=== PATIENT | male | born 1990 | race Caucasian/White ===

== ENCOUNTER 2020-05-27 20:15 | Inpatient (IN) ==
[2020-05-27 20:42] LABS: Basophils # 0.1 K/mcL (0.0-0.2); Basophils % 0.5 %; Eosinophils # 0.1 K/mcL (0.0-0.6); Eosinophils % 0.7 %; Hemoglobin 15.8 g/dL (12.9-16.9); Immature Granulocytes % 0.4 % (0-4); Lymphocytes # 2.4 K/mcL (0.6-4.6); Lymphocytes % 19.2 %; Mean Corpuscular HGB Conc 34.3 g/dL (31.6-35.5); Mean Corpuscular Hemoglobin 30.6 pg (28.0-33.3); Mean Corpuscular Volume 89.1 fL (83.0-100.0); Mean Platelet Volume 9.3 fL (9.4-12.4); Monocytes % 7.7 %; Neutrophils # 8.8 K/mcL (1.6-8.9); Platelet Count 358 K/mcL (140-400); Red Blood Count 5.16 M/mcL (4.19-5.50); Red Cell Distribution Width 12.9 % (11.5-14.5); Segmented Neutrophils % 71.5 %; White Blood Count 12.3 K/mcL (4.3-11.1)
[2020-05-27] MEDS ORDERED: Td (TENIVAC) Vaccine 0.5 ML VIAL IM ONE (20:45)
[2020-05-27 20:49] LABS: Bilirubin,Urine Negative (Negative); Blood,Urine Negative (Negative); Clarity,Urine Clear (Clear); Color,Urine Light-Yellow (Yellow); Glucose,Urine (UA) Normal (Normal); Ketones,Urine Trace mg/dL (Negative); Leukocyte Esterase,Urine Negative (Negative); Nitrite,Urine Negative (Negative); Protein,Urine Trace mg/dL (Neg-Trace); Specific Gravity,Urine 1.025 (1.010-1.025); Urobilinogen,Urine Normal (Normal)
[2020-05-27 20:59] LABS: Amphetamine Screen,Urine Negative ng/mL (Cutoff=1000); Barbiturate Screen,Urine Negative ng/mL (Cutoff=200); Benzodiazepines Screen,Urine Negative ng/mL (Cutoff=200); Cannabinoid Screen,Urine Negative ng/mL (Cutoff = 50); Cocaine Screen,Urine Negative ng/mL (Cutoff= 300); Opiate Screen,Urine Negative ng/mL (Cutoff=300); Phencyclidine Screen,Urine Negative ng/mL (Cutoff=25)
[2020-05-27] MEDS ORDERED: Tdap (Boostrix) Vaccine 0.5 ML SYRINGE IM ONE (21:00)
[2020-05-27 21:01] LABS: Acetaminophen < 10 mcg/mL (10-20); BUN/Creatinine Ratio 11 (6-26); Blood Urea Nitrogen 12 mg/dL (6-20); Calcium 9.4 mg/dL (8.6-10.3); Carbon Dioxide 22 mEq/L (23-29); Chloride 108 mEq/L (98-107); Ethanol < 10 mg/dL (Less than 10); Glucose 94 mg/dL (70-105); Osmolality,Calculated 288 (280-300); Potassium 3.7 mEq/L (3.5-5.1); Salicylate < 2.5 mg/dL (15.0-30.0); Sodium 139 mEq/L (136-145); eGFR For African Americans > 60 (> 60); eGFR For Non-African Americans > 60 (> 60)
[2020-05-27] MEDS ORDERED: hydrOXYzine pamoate 25 MG CAPSULE PO PRN (23:18)
[2020-05-27] MEDS ORDERED: MOM Conc 10 ML UD.LIQ PO PRN (23:18)
[2020-05-27] MEDS ORDERED: *HR* LORazepam 2 MG/ML VIAL IM PRN (23:18)
[2020-05-27] MEDS ORDERED: haloperidoL 5 MG TABLET PO PRN (23:18)
[2020-05-27] MEDS ORDERED: traZODone 50 MG TABLET PO PRN (23:18)
[2020-05-27] MEDS ORDERED: Mag Hydrox/Al Hydrox/Simeth 30 ML UDC PO PRN (23:18)
[2020-05-27] MEDS ORDERED: Haloperidol Lactate 5 MG/ML VIAL IM PRN (23:18)
[2020-05-27] MEDS ORDERED: *HR* LORazepam 1 MG TABLET PO PRN (23:18)
[2020-05-27] MEDS ORDERED: Acetaminophen 325 MG TABLET PO PRN (23:18)
[2020-05-29 08:45] VITALS: BP 113/76
== END 2020-05-29 13:10 | disposition home or self-care (01) | DRG 751 ==
LOC: EMEROOARM 20:15 → 1ANU 23:08
PROVIDERS: ADMIT Psychiatry & Neurology Psychiatry; ATTEND Psychiatry & Neurology Psychiatry